=== PATIENT | female | born 1975 | race Caucasian/White ===

== ENCOUNTER 2021-04-06 08:23 | Day surgery (SDC) | payer OTHER, SELFPAY ==
[~2021-04-06] VITALS: Ht 180.3 cm; Wt 93.0 kg
[2021-04-06] MEDS ORDERED: SIMETHICONE 40 MG/0.6 ML ML ONE (09:48)
[2021-04-06] MEDS ORDERED: PROPOFOL 200MG/ 20ML VIAL (DIPRIVAN) IV ONE (10:30)
[2021-04-06] MEDS ORDERED: LIDOCAINE 2%, 20 ML MDV INJ ONE (10:30)
[2021-04-06] MEDS ORDERED: NS 250 ML IV.SOLN IV ONE (10:30)
[2021-04-06 11:49] VITALS: BP_SYST 131
== END 2021-04-06 12:05 | disposition home or self-care (01) ==
LOC: SDS 08:23 → SMU 08:24 → SDS 12:05
PROVIDERS: ATTEND Internal Medicine
DX: Z12.11 Encounter for screening for malignant neoplasm of colon (principal); K57.30 Diverticulosis of large intestine without perforation or abscess without bleeding; K64.8 Other hemorrhoids; E11.9 Type 2 diabetes mellitus without complications; I10 Essential (primary) hypertension; J45.909 Unspecified asthma, uncomplicated; M79.7 Fibromyalgia; Z79.84 Long term (current) use of oral hypoglycemic drugs; Z90.710 Acquired absence of both cervix and uterus; Z20.822 Contact with and (suspected) exposure to COVID-19
CPT/HCPCS: 45378; 71046; 82962 ×2; 93005; G0378; U0003; J2001; J2704; J7050